=== PATIENT | female | born 1970 | race Caucasian/White ===

== ENCOUNTER → 2017-07-09 13:37 | Outpatient (CLI) | payer BC, SELFPAY ==
[2017-07-09 14:57] LABS: Basophils # 0.1 K/mm3 (0-0.2); Basophils % 0.7 % (0.1-2.0); Eosinophils # 0.1 K/mm3 (0.0-0.4); Eosinophils % 1.3 % (0.1-12.0); Hematocrit 39.3 % (37.0-47.0); Lymphocytes % 25.5 K/mm3 (10-50); Mean Corpuscular Hemoglobin 27.1 pg (27.0-31.2); Mean Corpuscular Volume 82.1 fl (81-99); Mean Platelet Volume 7.5 fl (7.4-10.4); Monocytes # 0.5 K/mm3 (0.1-1.0); Monocytes % 5.8 % (1.7-9.3); Neutrophils # 5.3 K/mm3 (1.8-7.8); Neutrophils % 66.7 % (37.0-80.0); Platelet Count 321 K/mm3 (142-424); Red Blood Count 4.79 M/mm3 (4.20-5.40); Red Cell Distribution Width 13.3 % (11.5-17.5)
[2017-07-09 15:11] LABS: Alanine Aminotransferase 30 U/L (12-78); Albumin Level 3.9 gm/dL (3.4-5.0); Albumin/Globulin Ratio 1.5 (1.1-1.8); Alkaline Phosphatase 90 U/L (46-116); Anion Gap 14.1 mEq/L (5-15); Aspartate Amino Transferase 14 U/L (15-37); Bilirubin,Total 0.5 mg/dL (0.2-1.0); Blood Urea Nitrogen 11 mg/dL (7-18); Calcium 8.8 mg/dL (8.5-10.1); Carbon Dioxide 23 mmol/L (21.0-32.0); Chloride 107 mmol/L (98-107); Chol/HDL Ratio 4.9 (1-3.5); Cholesterol 256 mg/dL (140-200); Creatine Kinase 105 U/L (26-192); Creatinine,Serum 0.87 mg/dL (0.55-1.02); Estimated Glomerular Filt Rate 70 ml/min (>60); GFR (African American) 85 ML/MIN (>60); Globulin 2.6 gm/dl (1.3-3.2); Glucose 89 mg/dL (74-106); HDL Cholesterol 52 mg/dL (29-89); LDL Cholesterol 183 mg/dL (0-130); Potassium 4.1 mmoL/L (3.5-5.1); Sodium 140 mmol/L (136-145); Thyroid Stimulating Hormone 1.57 uIU/ml (0.358-3.740); Total Protein,Serum 6.5 gm/dL (6.4-8.2); Triglycerides 106 mg/dL (30-200); VLDL Cholesterol 21 mg/dL (0-40)
[2017-07-09 15:15] LABS: C-Reactive Protein < 0.2 mg/L (0.0-0.9)
[2017-07-09 18:45] LABS: Erythrocyte Sedimentation Rate 8 mm/hr (0-20)
[2017-07-10 19:06] LABS: Estradiol 91.9 pg/mL (.); FSH 6.2 mIU/mL (.); Myoglobin 46 ng/mL (25-58)
== END ==
PROVIDERS: PCP Internal Medicine; Visit Provider Internal Medicine
DX: R53.83 Other fatigue (principal); E66.9 Obesity, unspecified; M79.1 Myalgia; Z78.0 Asymptomatic menopausal state
CPT/HCPCS: 36415; 80053; 80061; 82550; 82670; 83001; 83874; 84443; 85025; 85651; 86140

== ENCOUNTER → 2018-11-25 10:32 | Outpatient (CLI) | payer BC, SELFPAY ==
[2018-11-25 14:18] LABS: Alanine Aminotransferase 33 U/L (12-78); Albumin Level 3.5 gm/dL (3.4-5.0); Albumin/Globulin Ratio 1.3 (1.1-1.8); Alkaline Phosphatase 104 U/L (46-116); Anion Gap 12.3 mEq/L (5-15); Aspartate Amino Transferase 21 U/L (15-37); Bilirubin,Total 0.4 mg/dL (0.2-1.0); Blood Urea Nitrogen 15 mg/dL (7-18); Calcium 8.8 mg/dL (8.5-10.1); Carbon Dioxide 27 mmol/L (21.0-32.0); Chloride 107 mmol/L (98-107); Chol/HDL Ratio 3.1 (1-3.5); Cholesterol 140 mg/dL (140-200); Estimated Glomerular Filt Rate 77 ml/min (>60); GFR (African American) 93 ML/MIN (>60); Globulin 2.6 gm/dl (1.3-3.2); Glucose 89 mg/dL (74-106); HDL Cholesterol 45 mg/dL (29-89); LDL Cholesterol 83 mg/dL (0-130); Potassium 4.3 mmoL/L (3.5-5.1); Sodium 142 mmol/L (136-145); Total Protein,Serum 6.1 gm/dL (6.4-8.2); Triglycerides 61 mg/dL (30-200); VLDL Cholesterol 12 mg/dL (0-40)
== END ==
PROVIDERS: PCP Internal Medicine; Visit Provider Internal Medicine
DX: E78.5 Hyperlipidemia, unspecified (principal); Z13.1 Encounter for screening for diabetes mellitus
CPT/HCPCS: 36415; 80053; 80061; 83036; 84443

== ENCOUNTER 2020-06-11 10:17 | Emergency (ER) | payer BC, SELFPAY ==
[2020-06-11 10:28] VITALS: BP 155/97; PULSE 88; RESP 18; TEMP 37.3; O2SAT 100; BMI 33.6
--- NOTE | 2020-06-11 10:38 | XR_ITS ---
PROCEDURE: XR CHEST 2V CLINICAL HISTORY: R/O Pneumonia Cough COMPARISON: No exams were available for comparison FINDINGS: The cardiomediastinal silhouette and pulmonary vascularity are within normal limits. The lungs are clear without infiltrates, suspicious nodules, or pleural effusions. No acute bony abnormalities. IMPRESSION: No acute findings. Dictated by: Barrett August MD 06/11/2020 11:09 Barrett August MD in [facility] 06/11/2020 11:09
[2020-06-11 10:39] VITALS: BP 167/101; PULSE 101; RESP 20; O2SAT 98
[2020-06-11 11:00] LABS: Basophils # 0.1 K/mm3 (0-0.2); Basophils % 0.9 % (0.1-2.0); Eosinophils # 0.1 K/mm3 (0.0-0.4); Eosinophils % 1.3 % (0.1-12.0); Hematocrit 44.9 % (37.0-47.0); Hemoglobin 15.1 g/dL (12.2-16.2); Lymphocytes # 1.6 K/mm3 (0.7-4.5); Lymphocytes % 21.5 % (10-50); Mean Corpuscular HGB Conc 33.7 g/dL (31.8-35.4); Mean Corpuscular Hemoglobin 29.1 pg (27.0-31.2); Mean Corpuscular Volume 86.2 fl (81-99); Mean Platelet Volume 7.8 fl (7.4-10.4); Monocytes # 0.4 K/mm3 (0.1-1.0); Monocytes % 5.5 % (1.7-9.3); Neutrophils # 5.4 K/mm3 (1.8-7.8); Neutrophils % 70.8 % (37.0-80.0); Platelet Count 277 K/mm3 (142-424); Red Blood Count 5.21 M/mm3 (4.20-5.40); Red Cell Distribution Width 15.3 % (11.5-17.5); White Blood Count 7.7 K/mm3 (4.8-10.8)
[2020-06-11 11:04] LABS: Chloride 110 mmol/L (98-107); Potassium 4.1 mmoL/L (3.5-5.1); Sodium 141 mmol/L (136-145)
[2020-06-11 11:07] LABS: Anion Gap 12.1 mEq/L (5-15); Blood Urea Nitrogen 11 mg/dl (7-17); Calcium 9.8 mg/dl (8.4-10.2); Carbon Dioxide 23 mmol/L (22.0-30.0); Creatinine Clearance Estimated 117 mL/min (50-200); Estimated Glomerular Filt Rate 77 ml/min (>60); GFR (African American) 93 ML/MIN (>60); Glucose 136 mg/dl (74-100)
[2020-06-11 11:17] VITALS: BP 152/95; PULSE 82; RESP 22; O2SAT 99
[2020-06-11 11:27] LABS: Troponin I < 0.01 ng/ml (0.00-0.034)
[2020-06-11 11:35] VITALS: BP 143/98; PULSE 75; RESP 20; O2SAT 99
--- NOTE | 2020-06-11 12:11 | HMH.EDGENADL ---
ED Disposition Clinical Impression: Tension headache Hypertension Qualifiers: Hypertension type: essential hypertension Qualified Code(s): I10 - Essential (primary) hypertension Disposition: Home, Self-Care Condition on Discharge: Good Instructions: DI for Migraine Referrals: Stephan Rubin [Primary Care Provider] - - Critical Care Critical Care Time: No Attestation: On 06/11/20, the high probability of a clinically significant, sudden or life threatening deterioration of the following system(s) required my full and direct attention, intervention and personal management. The time I documented below is in addition to time spent performing reported procedures but includes the following listed in this critical care notation. Medical Decision Making - Medical Records Medical records reviewed: Yes: I reviewed the patient's medical records. - Ja Inquiry Pt receiving controlled substance: No Vital Signs: 06/11/20 10:28 06/11/20 10:39 06/11/20 11:17 Temperature 99.2 F Temperature Source Oral Pulse Rate [Right Radial] 88 101 H 82 Respiratory Rate 18 20 22 Blood Pressure [Right Arm] 155/97 H 167/101 H 152/95 H Blood Pressure Mean [Right Arm] 116 123 114 Blood Pressure Source [Right Arm] Automatic Cuff Blood Pressure Position [Right Arm] Sitting 02 Sat by Pulse Oximetry 100 98 99 Oxygen Delivery Method Room Air 06/11/20 11:35 Temperature Temperature Source Pulse Rate [Right Radial] 75 Respiratory Rate 20 Blood Pressure [Right Arm] 143/98 H Blood Pressure Mean [Right Arm] 113 Blood Pressure Source [Right Arm] Blood Pressure Position [Right Arm] 02 Sat by Pulse Oximetry 99 Oxygen Delivery Method - Lab Data Lab Results 06/11/20 10:30: WBC 7.7, RBC 5.21, Hgb 15.1, Hct 44.9, MCV 86.2, MCH 29.1, MCHC 33.7, RDW 15.3, Plt Count 277, MPV 7.8, Neut % (Auto) 70.8, Lymph % (Auto) 21.5, [place] % (Auto) 5.5, Eos % (Auto) 1.3, Baso % (Auto) 0.9, Neut # (Auto) 5.4, Lymph # (Auto) 1.6, Wayne # (Auto) 0.4, Eos # (Auto) 0.1, Baso # (Auto) 0.1 06/11/20 10:30: Sodium 141, Potassium 4.1, Chloride 110 H, Carbon Dioxide 23, Anion Gap 12.1, BUN 11, Creatinine 0.80, Estimated Creat Clear 117, Estimated GFR 77, Est GFR ( Amer) 93, Glucose 136 H, Calcium 9.8 06/11/20 10:30: Troponin I < 0.01 Result diagrams: 06/11/20 10:30 06/11/20 10:30 Orders (Tests/Meds): ED MEDICATIONS Discontinued Medications Generic Name Dose Route Start Last Admin Trade Name Ryne PRN Reason Stop Dose Admin Diphenhydramine HCl 25 mg 06/11/20 10:46 06/11/20 10:55 Diphenhydramine 50mg/Ml Vial IV 06/11/20 10:47 25 mg ONCE ONE Administration Ketorolac Tromethamine 30 mg 06/11/20 10:46 06/11/20 10:55 Ketorolac 30mg/Ml Vial IV 06/11/20 10:47 30 mg ONCE ONE Administration Ondansetron HCl 4 mg 06/11/20 10:46 06/11/20 10:55 Ondansetron 4mg/2ml Vial IV 06/11/20 10:47 4 mg ONCE ONE Administration ORDERS Category Date Time Status Covid-19 Nasal PCR Sendout P&C Stat Lab 06/11/20 10:30 Received Troponin I Q3H Lab 06/11/20 14:00 Ordered Troponin I Q3H Lab 06/11/20 17:00 Ordered - Radiology Data #1 Image(s): Chest Image Reviewed: Yes I reviewed the patient's radiology results, Yes I discussed the image results w/the radiologist, Yes I have reviewed radiologist's interpretation Preliminary Findings: Normal/NAD, No Infiltrates Seen - Reevaluation(s) Time: 12:15 Reevaluation #1: On reevaluation, the patient is feeling much better. Repeat neurologic exam is normal. Patient's blood pressure has improved after analgesics. I do believe the patient's migraine is likely secondary to her elevated blood pressure. We did obtain coronavirus swab. Patient will be notified of results. Patient is to follow-up with PCP. Given strict return precautions. Verbalized understanding. Medical Decision Narrative: This is a 49-year-old female presented to the emergency department wit
[2020-06-11 12:36] VITALS: BP 140/85; PULSE 61; RESP 20; O2SAT 100
[2020-06-11 12:41] VITALS: BP 140/85; PULSE 76; RESP 16; TEMP 36.9; O2SAT 100
[2020-06-12 08:41] LABS: Covid-19 Nasal PCR Sendout P&C NEGATIVE
== END 2020-06-11 12:42 | disposition home or self-care (01) ==
PROVIDERS: Emergency Provider Emergency Medicine; PCP Internal Medicine
DX: Z20.822 Contact with and (suspected) exposure to COVID-19 (principal); G44.209 Tension-type headache, unspecified, not intractable; I10 Essential (primary) hypertension; R73.9 Hyperglycemia, unspecified; Z79.899 Other long term (current) drug therapy
CPT/HCPCS: 71046; 80048; 84484; 85025; 96374; 96375; 99283; J2405; U0004

== ENCOUNTER → 2020-07-08 08:45 | Outpatient (CLI) | payer BC, SELFPAY ==
[2020-07-08 12:05] LABS: Microscopic, Urine URINE MICROSCOPIC (MICROSCOPIC)
[2020-07-08 14:33] LABS: Chloride 108 mmol/L (98-107); Potassium 4.5 mmoL/L (3.5-5.1); Sodium 137 mmol/L (136-145)
[2020-07-08 14:35] LABS: Blood Urea Nitrogen 11 mg/dl (7-17); Estimated Glomerular Filt Rate 89 ml/min (>60); GFR (African American) 108 ML/MIN (>60)
[2020-07-08 14:36] LABS: Alanine Aminotransferase 17 U/L (12-78); Albumin Level 4.3 g/dl (3.5-5.0); Albumin/Globulin Ratio 1.7 (1.1-1.8); Alkaline Phosphatase 71 U/L (38-126); Anion Gap 11.5 mEq/L (5-15); Aspartate Amino Transferase 22 U/L (14-36); Bilirubin,Total 0.5 mg/dl (0.2-1.3); Calcium 9.7 mg/dl (8.4-10.2); Carbon Dioxide 22 mmol/L (22.0-30.0); Chol/HDL Ratio 4.2 (1-3.5); Cholesterol 241 mg/dl (140-200); Globulin 2.6 g/dL (1.3-3.2); Glucose 85 mg/dl (74-100); HDL Cholesterol 58 mg/dl (40-60); Total Protein,Serum 6.9 g/dl (6.3-8.2); Triglycerides 108 mg/dl (30-150); VLDL Cholesterol 22 mg/dL (0-40)
[2020-07-08 14:44] LABS: Appearance,Urine CLEAR (Clear); Bilirubin,Urine Negative (Negative); Blood, Urine TRACE-I (Negative); Color,Urine YELLOW (Yellow); Glucose,Urine (UA) Negative (Negative); Ketones,Urine Negative (Negative); Leukocyte Esterase,Urine Negative (Negative); Nitrate,Urine Negative (Negative); Protein,Urine Negative (Negative); Specific Gravity, Urine <= 1.005 (1.005-1.030); Urobilinogen,Urine 0.2 EU/dl (0.2)
[2020-07-08 14:47] LABS: Direct LDL Cholesterol 170.51 mg/dL (100-129)
[2020-07-08 15:01] LABS: Microalbumin < 6.000 mg/L (0-16.7)
[2020-07-08 15:03] LABS: Squamous Epithelial Cell,Urine Occasional #/hpf (0-5)
[2020-07-08 15:05] LABS: Thyroid Stimulating Hormone 2.18 uIU/mL (0.465-4.68)
[2020-07-08 15:22] LABS: Hemoglobin A1C 5.1 % (4.0-6.0)
== END ==
PROVIDERS: PCP Internal Medicine; Visit Provider Internal Medicine
DX: I10 Essential (primary) hypertension (principal); R73.03 Prediabetes
CPT/HCPCS: 36415; 80053; 80061; 81001; 82043; 83036; 84443

== ENCOUNTER 2020-07-10 20:04 | Emergency (ER) | payer BC, SELFPAY ==
[2020-07-10 20:05] VITALS: BP 161/97; PULSE 92; RESP 14; TEMP 36.5; O2SAT 100; BMI 33.6
--- NOTE | 2020-07-10 20:26 | CT_ITS ---
PROCEDURE: CT LUMBAR SPINE WO CON CLINICAL HISTORY: back pain after lifting grandchild COMPARISON: No exams were available for comparison TECHNIQUE: Axial images obtained with sagittal and coronal reformats. All CT scans at the facility use one or more dose reduction, viz: automated exposure control, ma/kV adjustment per patient size (including targeted exams where dose is matched to indication, i.e. head), or iterative reconstruction technique. FINDINGS: There is normal curvature and alignment. All lumbar vertebrae appear intact and disc spaces are well maintained throughout. The transverse processes all appear intact. The SI joints are normal. The spinal canal is normal in size throughout. There is mild diffuse bulging of the annulus fibrosus at L4-5 and L5-S1. IMPRESSION: No acute findings Dictated by: Dr. Joce Littlejohn MD 07/11/2020 08:34 Dr. Joce Littlejohn MD in [facility] 07/11/2020 08:34
--- NOTE | 2020-07-10 20:26 | CT_ITS ---
PROCEDURE: CT ABDOMEN PELVIS W CON CLINICAL INDICATION: lower abd pain COMPARISON: No exams were available for comparison TECHNIQUE: IV Contrast: 75ML OPTIRAY 350 Oral Contrast none given Axial images obtained with sagittal and coronal reformats. All CT scans at the facility use one or more dose reduction, viz: automated exposure control, ma/kV adjustment per patient size (including targeted exams where dose is matched to indication, i.e. head), or iterative reconstruction technique. FINDINGS: Lower thorax: The lower lung seymour are clear and there is no pleural fluid. ABDOMEN: Liver: No masses or biliary dilatation. Gallbladder: Post cholecystectomy, the common bile duct is mildly dilated not unexpected Pancreas: No masses or peripancreatic fluid collections. Spleen: unremarkable Adrenals: unremarkable Kidneys/ureters: The kidneys are normal in size and show symmetrical function but appearing grossly normal though there is a small 3-4 mm nonobstructing calculus lower pole calyx left kidney. ABDOMEN & PELVIS: Stomach bowel: The stomach and duodenal sweep are normal. The small bowel is unremarkable. The appendix is normal. There is a large amount of stool in the cecum and ascending colon with moderate stool and gas in the transverse colon. Peritoneum: There is a small umbilical hernia containing fat only. Lymph nodes: No enlarged lymph nodes apparent. Vasculature: No evidence of abdominal aortic aneurysm. No retroperitoneal hemorrhage evident. Bones: No acute fracture PELVIS: Reproductive: Post hysterectomy, there is an oval hypodense cystic appearing lesion left adnexa likely a small ovarian cyst measuring 2.8 by 2.2 x 2.6 cm. There is no free fluid in the pelvis. Bladder: The urinary bladder is partially decompressed but otherwise appears normal. Appendix: Unremarkable. No distention or periappendiceal phlegmonous change. IMPRESSION: No acute abdominal or pelvic pathology identified, possible mild constipation Dictated by: Dr. Joce Littlejohn MD 07/11/2020 08:22 Dr. Joce Littlejohn MD in [facility] 07/11/2020 08:22
[2020-07-10 20:31] LABS: Microscopic, Urine URINE MICROSCOPIC (MICROSCOPIC)
[2020-07-10 20:32] LABS: Appearance,Urine CLEAR (Clear); Bilirubin,Urine Negative (Negative); Blood, Urine 1+ (Negative); Color,Urine YELLOW (Yellow); Glucose,Urine (UA) Negative (Negative); Ketones,Urine Negative (Negative); Leukocyte Esterase,Urine Negative (Negative); Nitrate,Urine Negative (Negative); Protein,Urine Negative (Negative); Specific Gravity, Urine 1.025 (1.005-1.030); Urobilinogen,Urine 0.2 EU/dl (0.2)
[2020-07-10 20:35] LABS: Basophils # 0.1 K/mm3 (0-0.2); Basophils % 0.5 % (0.1-2.0); Eosinophils # 0.1 K/mm3 (0.0-0.4); Eosinophils % 0.9 % (0.1-12.0); Hematocrit 45.1 % (37.0-47.0); Hemoglobin 14.7 g/dL (12.2-16.2); Lymphocytes # 2.3 K/mm3 (0.7-4.5); Lymphocytes % 15.7 % (10-50); Mean Corpuscular HGB Conc 32.6 g/dL (31.8-35.4); Mean Corpuscular Hemoglobin 28.4 pg (27.0-31.2); Mean Corpuscular Volume 87.1 fl (81-99); Mean Platelet Volume 7.1 fl (7.4-10.4); Monocytes # 0.9 K/mm3 (0.1-1.0); Monocytes % 5.7 % (1.7-9.3); Neutrophils # 11.4 K/mm3 (1.8-7.8); Neutrophils % 77.1 % (37.0-80.0); Platelet Count 340 K/mm3 (142-424); Red Blood Count 5.17 M/mm3 (4.20-5.40); Red Cell Distribution Width 15.4 % (11.5-17.5); White Blood Count 14.8 K/mm3 (4.8-10.8)
--- NOTE | 2020-07-10 20:36 | HMH.EDBACK ---
ED Disposition Clinical Impression: Lumbar radiculopathy Disposition: Home, Self-Care Condition on Discharge: Good Instructions: DI for Lumbar Radiculopathy Additional Instructions: use meds and call pcp in am for follow up Prescriptions: predniSONE [Prednisone 20mg Tab] 20 mg PO BID #10 tab Transmission Status: Pending to [facility] #[id number] Referrals: Stephan Rubin [Primary Care Provider] - - Critical Care Critical Care Time: No Attestation: On 07/10/20, the high probability of a clinically significant, sudden or life threatening deterioration of the following system(s) required my full and direct attention, intervention and personal management. The time I documented below is in addition to time spent performing reported procedures but includes the following listed in this critical care notation. Medical Decision Making - Medical Records Medical records reviewed: Yes: I reviewed the patient's medical records. - Ja Inquiry Pt receiving controlled substance: No Vital Signs: 07/10/20 20:05 Temperature 97.7 F Temperature Source Oral Pulse Rate [Right] 92 H Respiratory Rate 14 Blood Pressure [Right Arm] 161/97 H Blood Pressure Mean [Right Arm] 118 02 Sat by Pulse Oximetry 100 - Lab Data Lab results reviewed: Yes: I reviewed the patient's lab results. Lab Results 07/10/20 20:18: Urine Color Yellow, Urine Appearance Clear, Urine pH 6.0, Ur Specific [place] 1.025, Urine Protein Negative, Urine Glucose (UA) Negative, Urine Ketones Negative, Urine Blood 1+, Urine Nitrate Negative, Urine Bilirubin Negative, Urine Urobilinogen 0.2, Ur Leukocyte Esterase Negative, Urine RBC None, Urine WBC Occasional, Ur Squamous Epith Cells 5-10, Urine Bacteria 1+ 07/10/20 20:20: WBC 14.8 H, RBC 5.17, Hgb 14.7, Hct 45.1, MCV 87.1, MCH 28.4, MCHC 32.6, RDW 15.4, Plt Count 340, MPV 7.1 L, Neut % (Auto) 77.1, Lymph % (Auto) 15.7, [place] % (Auto) 5.7, Eos % (Auto) 0.9, Baso % (Auto) 0.5, Neut # (Auto) 11.4 H, Lymph # (Auto) 2.3, [place] # (Auto) 0.9, Eos # (Auto) 0.1, Baso # (Auto) 0.1 07/10/20 20:20: Sodium 139, Potassium 4.2, Chloride 106, Carbon Dioxide 25, Anion Gap 12.2, BUN 12, Creatinine 0.80, Estimated Creat Clear 117, Estimated GFR 77, Est GFR ( Amer) 93, Glucose 108 H, Calcium 9.7, Total Bilirubin 0.3, AST 26, ALT 20, Alkaline Phosphatase 85, C-Reactive Protein 0.9, Total Protein 7.9, Albumin 4.9, Globulin 3.0, Albumin/Globulin Ratio 1.6 07/10/20 20:20: ESR 4 07/10/20 20:20: Procalcitonin 0.038 Result diagrams: 07/10/20 20:20 07/10/20 20:20 Orders (Tests/Meds): ED MEDICATIONS Generic Name Dose Route Start Last Admin Trade Name Freq PRN Reason Stop Dose Admin Sodium Chloride 1,000 mls @ 999 mls/hr 07/10/20 20:45 07/10/20 20:32 Sod Chlor 0.9% 1000ml Bag IV 07/10/20 21:45 999 mls/hr .Q1H1M BLAINE Administration Discontinued Medications Generic Name Dose Route Start Last Admin Trade Name Freq PRN Reason Stop Dose Admin Sodium Chloride 500 mls @ 999 mls/hr 07/10/20 20:30 Sod Chlor 0.9% 1000ml Bag IV 07/10/20 21:00 .Q31M BLAINE Iopamidol 75 ml 07/10/20 21:05 07/10/20 21:06 Iopamidol-370 (76%);100ml Bottle IV 07/10/20 21:06 75 ml ONCE ONE Administration Ketorolac Tromethamine 30 mg 07/10/20 20:28 07/10/20 20:31 Ketorolac 30mg/Ml Vial IV 07/10/20 20:29 30 mg ONCE ONE Administration Methylprednisolone Sodium Succinate 125 mg 07/10/20 20:28 07/10/20 20:31 Methylprednisolone Sod Succ 125mg Vial IV 07/10/20 20:29 125 mg ONCE ONE Administration Morphine Sulfate 4 mg 07/10/20 21:11 07/10/20 21:12 Morphine 4mg/Ml Syringe IV 07/10/20 21:12 4 mg ONCE ONE Administration Ondansetron HCl 4 mg 07/10/20 21:11 07/10/20 21:12 Ondansetron 4mg/2ml Vial IV 07/10/20 21:12 4 mg ONCE ONE Administration Sodium Chloride 10 ml 07/10/20 21:05 07/10/20 21:06 Sodium Chloride 0.9% 10ml Syr (Rad Only) IV 07/10/20 21:06 10 ml ONCE ONE
[2020-07-10 20:38] LABS: Bacteria,Urine 1+ /lpf; WBC,Urine Occasional #/hpf (0-3)
[2020-07-10 20:41] LABS: Alanine Aminotransferase 20 U/L (12-78); Albumin Level 4.9 g/dl (3.5-5.0); Albumin/Globulin Ratio 1.6 (1.1-1.8); Alkaline Phosphatase 85 U/L (38-126); Anion Gap 12.2 mEq/L (5-15); Aspartate Amino Transferase 26 U/L (14-36); Bilirubin,Total 0.3 mg/dl (0.2-1.3); Blood Urea Nitrogen 12 mg/dl (7-17); Calcium 9.7 mg/dl (8.4-10.2); Carbon Dioxide 25 mmol/L (22.0-30.0); Chloride 106 mmol/L (98-107); Creatinine Clearance Estimated 117 mL/min (50-200); Estimated Glomerular Filt Rate 77 ml/min (>60); GFR (African American) 93 ML/MIN (>60); Glucose 108 mg/dl (74-100); Potassium 4.2 mmoL/L (3.5-5.1); Sodium 139 mmol/L (136-145); Total Protein,Serum 7.9 g/dl (6.3-8.2)
[2020-07-10 20:46] LABS: C-Reactive Protein 0.9 mg/L (0-4)
[2020-07-10 21:00] LABS: Procalcitonin 0.038 ng/mL (0.0-2.0)
[2020-07-10 21:23] LABS: Erythrocyte Sedimentation Rate 4 mm/hr (0-20)
[2020-07-10 22:07] VITALS: BP 132/82; PULSE 87; RESP 14; TEMP 36.8; O2SAT 97
== END 2020-07-10 22:10 | disposition home or self-care (01) ==
PROVIDERS: Emergency Provider Emergency Medicine; PCP Internal Medicine
DX: M54.16 Radiculopathy, lumbar region (principal); R03.0 Elevated blood-pressure reading, without diagnosis of hypertension; F41.9 Anxiety disorder, unspecified
CPT/HCPCS: 72131; 74177; 80053; 81001; 84145; 85025; 85651; 86140; 96365; 96375; 99283; J2405; Q9967

== ENCOUNTER → 2020-07-18 13:34 | Outpatient (CLI) | payer BC, SELFPAY ==
--- NOTE | 2020-07-18 13:47 | MR_ITS ---
PROCEDURE: MR LUMBAR SPINE WO CON CLINICAL INDICATION: CHRONIC LBP Pt states back goes out 3-4 times a year. Pt bent over and back went out. Right hip and leg pain with tingling. COMPARISON: CT CT LUMBAR SPINE WO CON from 07/10/2020 TECHNIQUE: Standard multiplanar multiecho sequences are performed without contrast. 3-D MIP and myelographic images are also rendered and reviewed FINDINGS: There is normal alignment. Spinal cord ends at the L1 level. L1-L2: Mild concentric bulging disc with mild facet and ligamentum hypertrophy with mild bilateral lateral recess narrowing. L2-L3: Unremarkable. L3-L4: Mild concentric bulging disc with facet and ligamentum hypertrophy with mild bilateral lateral recess and foraminal narrowing. L4-5: Mild concentric bulging disc with moderate facet and ligamentum hypertrophy. There is a small annular fissure. There is mild to moderate bilateral foraminal narrowing and bilateral lateral recess narrowing with canal stenosis. L5-S1: Bulging disc with facet and ligamentum hypertrophic change and with [id number] bilateral foraminal narrowing. There is a small annular fissure. IMPRESSION: Multilevel lumbar spondylosis. Please see above for detailed description at each level. No extruded herniated disc Dictated by: Barrett August MD 07/19/2020 13:39 Barrett August MD in [facility] 07/19/2020 13:39
== END ==
PROVIDERS: PCP Internal Medicine; Visit Provider Internal Medicine
DX: M54.5 Low back pain (principal)
CPT/HCPCS: 72148; 76376

== ENCOUNTER → 2021-02-05 06:07 | Outpatient (CLI) | payer BC, SELFPAY ==
[2021-02-05 13:52] LABS: Chloride 110 mmol/L (98-107); Potassium 4.5 mmoL/L (3.5-5.1); Sodium 139 mmol/L (136-145)
[2021-02-05 13:54] LABS: Alanine Aminotransferase 20 U/L (12-78); Albumin Level 3.7 g/dl (3.5-5.0); Albumin/Globulin Ratio 1.6 (1.1-1.8); Alkaline Phosphatase 83 U/L (38-126); Anion Gap 14.5 mEq/L (5-15); Aspartate Amino Transferase 22 U/L (14-36); Bilirubin,Total 0.3 mg/dl (0.2-1.3); Blood Urea Nitrogen 15 mg/dl (7-17); Carbon Dioxide 19 mmol/L (22.0-30.0); Estimated Glomerular Filt Rate 76 ml/min (>60); GFR (African American) 92 ML/MIN (>60); Globulin 2.3 g/dL (1.3-3.2)
[2021-02-05 13:55] LABS: Calcium 8.8 mg/dl (8.4-10.2); Cholesterol 142 mg/dl (140-200); Glucose 101 mg/dl (74-100); HDL Cholesterol 47 mg/dl (40-60); Triglycerides 66 mg/dl (30-150); VLDL Cholesterol 13 mg/dL (0-40)
[2021-02-05 14:07] LABS: Direct LDL Cholesterol 81.84 mg/dL (100-129)
== END ==
PROVIDERS: Visit Provider Internal Medicine
DX: I10 Essential (primary) hypertension (principal); E78.5 Hyperlipidemia, unspecified
CPT/HCPCS: 36415; 80053; 80061

== ENCOUNTER → 2021-02-19 13:05 | Outpatient (CLI) | payer BC, SELFPAY | PROVIDERS: PCP Internal Medicine; Visit Provider Nurse Practitioner | DX: Z20.822 Contact with and (suspected) exposure to COVID-19 (principal); U07.1 COVID-19 | CPT/HCPCS: C9803; U0003; U0005 ==

== ENCOUNTER → 2021-08-16 08:07 | Outpatient (CLI) | payer BC, OTHER, SELFPAY ==
[2021-08-16 08:24] LABS: Microscopic, Urine URINE MICROSCOPIC (MICROSCOPIC)
[2021-08-16 09:02] LABS: Appearance,Urine CLEAR (Clear); Bilirubin,Urine Negative (Negative); Blood, Urine 1+ (Negative); Color,Urine YELLOW (Yellow); Glucose,Urine (UA) Negative (Negative); Ketones,Urine Negative (Negative); Leukocyte Esterase,Urine Negative (Negative); Nitrate,Urine Negative (Negative); Protein,Urine Negative (Negative); Specific Gravity, Urine 1.015 (1.005-1.030); Urobilinogen,Urine 0.2 EU/dl (0.2)
[2021-08-16 09:03] LABS: Basophils # 0.1 K/mm3 (0-0.2); Eosinophils # 0.1 K/mm3 (0.0-0.4); Eosinophils % 1.3 % (0.1-12.0); Hematocrit 43.7 % (37.0-47.0); Hemoglobin 13.8 g/dL (12.2-16.2); Lymphocytes # 1.4 K/mm3 (0.7-4.5); Lymphocytes % 19.5 % (10-50); Mean Corpuscular HGB Conc 31.6 g/dL (31.8-35.4); Mean Corpuscular Hemoglobin 29.8 pg (27.0-31.2); Mean Corpuscular Volume 94.3 fl (81-99); Mean Platelet Volume 8.1 fl (7.4-10.4); Monocytes # 0.6 K/mm3 (0.1-1.0); Monocytes % 7.9 % (1.7-9.3); Neutrophils % 70.4 % (37.0-80.0); Platelet Count 251 K/mm3 (142-424); Red Blood Count 4.63 M/mm3 (4.20-5.40); Red Cell Distribution Width 14.7 % (11.5-17.5); White Blood Count 7.1 K/mm3 (4.8-10.8)
[2021-08-16 10:06] LABS: 25-OH Vitamin D, Total 34.7 ng/mL (30-100)
[2021-08-16 10:32] LABS: Hemoglobin A1C 5.3 % (4.0-6.0)
[2021-08-16 11:26] LABS: Chloride 104 mmol/L (98-107); Potassium 4.3 mmoL/L (3.5-5.1); Sodium 135 mmol/L (136-145)
[2021-08-16 11:28] LABS: Alanine Aminotransferase 23 U/L (12-78); Aspartate Amino Transferase 24 U/L (14-36); Blood Urea Nitrogen 11 mg/dl (7-17); Estimated Glomerular Filt Rate 76 ml/min (>60); GFR (African American) 92 ML/MIN (>60)
[2021-08-16 11:29] LABS: Albumin Level 3.9 g/dl (3.5-5.0); Albumin/Globulin Ratio 2.2 (1.1-1.8); Alkaline Phosphatase 74 U/L (38-126); Anion Gap 9.3 mEq/L (5-15); Bilirubin,Total 0.7 mg/dl (0.2-1.3); Calcium 8.5 mg/dl (8.4-10.2); Carbon Dioxide 26 mmol/L (22.0-30.0); Cholesterol 136 mg/dl (140-200); Globulin 1.8 g/dL (1.3-3.2); Glucose 84 mg/dl (74-100); Total Protein,Serum 5.7 g/dl (6.3-8.2); Triglycerides 76 mg/dl (30-150); VLDL Cholesterol 15 mg/dL (0-40)
[2021-08-16 11:40] LABS: Direct LDL Cholesterol 69.53 mg/dL (100-129)
[2021-08-16 11:47] LABS: Bacteria,Urine 1+ /lpf; RBC,Urine Occasional #/hpf (0-3)
[2021-08-16 11:59] LABS: Thyroid Stimulating Hormone 1.02 uIU/mL (0.465-4.68)
[2021-08-16 12:34] LABS: Chol/HDL Ratio 2.7 (1-3.5); HDL Cholesterol 51 mg/dl (40-60)
== END ==
PROVIDERS: Visit Provider Internal Medicine
DX: I10 Essential (primary) hypertension (principal); E78.5 Hyperlipidemia, unspecified; E55.9 Vitamin D deficiency, unspecified; E66.9 Obesity, unspecified; R30.0 Dysuria
CPT/HCPCS: 36415; 80053; 80061; 81001; 82306; 83036; 84443; 85025